=== PATIENT | male | born 1965 | race Caucasian/White ===

== ENCOUNTER 2020-01-09 19:06 | Emergency (ER) | payer SELFPAY ==
[2020-01-09 19:24] VITALS: BP 134/91; PULSE 87; RESP 15; TEMP 36.7; O2SAT 91
--- NOTE | 2020-01-09 20:53 | ED.UPPEXIN ---
HPI - Extremity Injury (Upper) General Chief Complaint: Extremity Injury, Upper Stated Complaint: cut tip of finger off Time Seen by Provider: 01/09/20 19:29 Source: patient Mode of arrival: ambulatory Limitations: no limitations History of Present Illness HPI narrative: This is a 54 year old male that presents to the emergency department for left thumb injury sustained just prior to arrival. Reports he was using a new knife cutting onion and cut the tip of his finger. Reports he has been unable to control the bleeding. Reports he is up-to-date on tetanus. Denies decreased range of motion or numbness. Related Data Allergies Allergy/AdvReac Type Severity Reaction Status Date / Time No Known Allergies Allergy Verified 01/09/20 19:28 Review of Systems Review of Systems: Narrative: CONSTITUTIONAL: Denies fever SKIN: Reports laceration. MUSCULOSKELETAL: Denies joint pain NEUROLOGIC: Denies numbness All systems reviewed & are unremarkable except as noted in HPI and below PMFSH Past Medical History Medical History (Updated 01/09/20 @ 21:05 by Shayy Oconnor PA-C) No active medical problems Social History Social History (Updated 01/09/20 @ 21:01 by Shayy Oconnor PA-C) Substance use: never Gender identity (if verbalized by the patient): Male Exam Narrative: Exam Narrative: GENERAL: Well-appearing, well-nourished, and in no acute distress. HEAD: Normocephalic, atraumatic. EYES: EOMI. EXTREMITIES: Normal range of motion. No edema or obvious deformity. 1cm circular area of skin tip of left thumb avulsed, slowly oozing blood. Normal sensation SKIN: Warm, dry, no rash. NEURO: No focal deficits. Alert and oriented x3. PSYCH: Normal mood and affect Course Vital Signs Vital signs: Vital Signs Temperature 98.0 F 01/09/20 19:24 Pulse Rate 87 01/09/20 19:24 Respiratory Rate 15 01/09/20 19:24 Blood Pressure 134/91 H 01/09/20 19:24 Pulse Oximetry 91 01/09/20 19:24 Temperature 98.0 F 01/09/20 19:24 Pulse Rate 87 01/09/20 19:24 Respiratory Rate 15 01/09/20 19:24 Blood Pressure 134/91 H 01/09/20 19:24 Pulse Oximetry 91 01/09/20 19:24 Procedures Laceration Laceration 1: Date: 01/09/20 Time: 21:02 Site: hand Side (If applicable): left Size (cm): 1 Description: other (avulsion) Pre-repair: irrigated ====== Skin Level ====== ====== Subcutaneous Layer ====== ====== Muscle Layer ====== ====== Tendon Layer ====== Dressing: Wound irrigated and bleeding controlled with Surgicel MDM - Extremity Injury (Upper) MDM Narrative Medical decision making narrative: Patient presents the emergency department for avulsion to skin at tip of the left thumb. He is up-to-date on tetanus. Wound was irrigated and bleeding controlled with Surgicel. Patient was educated on wound care. He is to follow-up with primary care doctor. He was given warnings to return to the ER Critical Care Time Critical Care Time Critical Care Time: No Discharge Plan Discharge Clinical Impression: Avulsion of skin of left thumb Qualifiers: Encounter type: initial encounter Qualified Code(s): S61.002A - Unspecified open wound of left thumb without damage to nail, initial encounter Patient Disposition: Home, Self-Care Condition: Stable Instructions: Skin Avulsion (ED) Additional Instructions: Return to the emergency department if you experience fever, redness or swelling of your wound, abnormal drainage from your wound, or any other symptoms that are concerning to you. Leave the bottom layer of gauze on the wound until it falls off. You may change the top bandage daily Follow-up with your primary care doctor for wound check Follow-up/Referrals: PHYSICIAN NOT ON STAFF,NONSTAFF [Primary Care Provider] - 1 Week
== END 2020-01-09 21:07 | disposition home or self-care (01) ==
PROVIDERS: Emergency Provider Emergency Medicine
DX: S61.002A Unspecified open wound of left thumb without damage to nail, initial encounter (principal); W26.0XXA Contact with knife, initial encounter
CPT/HCPCS: 12001; 99282